=== PATIENT | female | born 1995 | race Caucasian/White ===

== ENCOUNTER 2017-03-30 03:56 | Emergency (ER) | payer BC ==
[~2017-03-30] VITALS: Ht 167.6 cm; Wt 87.4 kg
[~2017-03-30 03:56] MED LIST: LEVO175T2 PO; [UNRECOGNIZED DRUG - CODE] PO
[2017-03-30] MEDS ORDERED: morphine SULFATE 10 MG/ML, 1ML ONE ×2 (04:49→05:35)
[2017-03-30] MEDS ORDERED: ONDANSETRON 2MG/ML, 2ML ONE (04:49)
[2017-03-30 04:54] LABS: HEMATOCRIT 43.7 % (34.6-47.8); HEMOGLOBIN 15.1 g/dL (11.7-16.4); WHITE BLOOD COUNT 12.4 x10^3/uL (3.4-10)
[2017-03-30] MEDS: MORPHINE SULFATE 4 MG/ML, 1ML IVPush PRN ×2 (04:56→05:42)
[2017-03-30] MEDS ORDERED: ONDANSETRON 2MG/ML, 2ML IVPush ONE (05:00)
[2017-03-30] MEDS ORDERED: SODIUM CHLORIDE 0.9% 1,000ML IVBOLUS ONE (05:00)
[2017-03-30 05:02] LABS: BLOOD UREA NITROGEN 13 mg/dL (7-18)
[2017-03-30 05:07] LABS: ASPARTATE AMINO TRANSFERASE 16 U/L (15-37)
[2017-03-30 07:06] VITALS: BP 138/72
== END 2017-03-30 07:32 | disposition home or self-care (01) ==
LOC: ED 06:51
DX: N83.202 Unspecified ovarian cyst, left side (principal)
CPT/HCPCS: 36415; 76830; 80053; 81003; 83690; 84702; 85025; 93005; 96374; 96375; 96376; 99285; J2405